=== PATIENT | female | born 1955 | race Caucasian/White ===

== ENCOUNTER → 2019-06-03 08:35 | Outpatient (CLI) | payer OTHER, SELFPAY ==
--- NOTE | ~2019-06-03 | XR_ITS ---
EXAMINATION: XR lumbar spine min 4V DATE: 06/03/2019 09:01 INDICATION: Acute low back pain without sciatica TECHNIQUE: Anteroposterior, lateral, and bilateral oblique views of the lumbar spine, and cone-down l ateral view of the lumbosacral junction were obtained. COMPARISON: None. 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 Mild lumbar dextrocurvature. Vertebral body heights are normal. Moderate disc height loss at L4-L5. M ild disc height loss at 11 T12-L1 L2. Moderate to severe bilateral lower lumbar facet osteoarthritis most prominent at L5-S1. Sacrum and bilateral sacroiliac joints are unremarkable.. IMPRESSION: 1. L4 spondylolysis with bilateral pars intra-articular is defects and 11 mm anterolisthesis on L5. 2. Moderate lumbar spondylosis. Reviewed, dictated and finalized at location A. ATION COUNSELOR IMPRESSION: 1. 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 2. Moderate lumbar spondylosis.
== END ==
DX: M47.896 Other spondylosis, lumbar region (principal)
CPT/HCPCS: 72110